=== PATIENT | male | born 2000 | race African-American/Black ===

== ENCOUNTER 2021-10-07 09:41 | Day surgery (SDC) | payer OTHER ==
[2021-10-06 12:58] VITALS: BMI 23.7
[2021-10-07] MEDS ORDERED: MIDAZOLAM HCL 2 MG/2 ML SINGLE DOSE VIAL ONE (11:21)
[2021-10-07] MEDS ORDERED: BUPIVACAINE LIPOSOME/PF (EXPAREL) 266 MG/20 ML VIAL ONE (11:21)
[2021-10-07] MEDS ORDERED: BUPIVACAINE HCL/PF 0.5% (5MG/ML) 10 ML VIAL ONE (11:21)
[2021-10-07] MEDS ORDERED: DEXAMETHASONE SOD PHOSPHATE 4 MG/1 ML VIAL ONE (12:32)
[2021-10-07] MEDS ORDERED: ONDANSETRON 4 MG/2 ML VIAL ONE ×2 (12:32→17:51)
[2021-10-07] MEDS ORDERED: PROPOFOL 20 ML ONE ×2 (12:33)
[2021-10-07] MEDS ORDERED: fentaNYL CITRATE 250 MCG/5 ML VIAL ONE (12:33)
[2021-10-07] MEDS ORDERED: ROCURONIUM BROMIDE 50 MG/5 ML SYRINGE ONE ×2 (12:33→13:31)
[2021-10-07] MEDS ORDERED: SUCCINYLCHOLINE CHLORIDE 200 MG/10 ML SYRINGE ONE (12:33)
[2021-10-07] MEDS ORDERED: ceFAZolin SODIUM 1 GM VIAL ONE (12:33)
[2021-10-07] MEDS ORDERED: TRANEXAMIC ACID 1000 MG/10 ML VIAL ONE (12:54)
[2021-10-07] MEDS ORDERED: HYDROmorphone HCL/PF 1 MG/ML VIAL ONE (13:38)
[2021-10-07] MEDS ORDERED: oxyCODONE HCL 5 MG TABLET PO PRN ×2 (16:08)
[2021-10-07] MEDS ORDERED: ONDANSETRON 4 MG/2 ML VIAL IVPUSH PRN (16:08)
[2021-10-07] MEDS ORDERED: LACTATED RINGERS SOLUTION 1,000 ML IV SCH (16:15)
[2021-10-07] MEDS ORDERED: NEOSTIGMINE METHYLSULFATE 0.5 MG/ML - 10 ML MDV ONE (16:19)
[2021-10-07] MEDS ORDERED: GLYCOPYRROLATE 0.2 MG/1 ML VIAL ONE (16:19)
[2021-10-07] MEDS ORDERED: ACETAMINOPHEN INJECTION 100 ML IVPB ONE (16:55)
[2021-10-07] MEDS ORDERED: ACETAMINOPHEN 1000 MG/100 ML VIAL IVPB ONE (17:04)
[2021-10-07] MEDS ORDERED: oxyCODONE HCL 5 MG TABLET ONE (17:46)
[2021-10-07] MEDS ORDERED: ONDANSETRON 4 MG/2 ML VIAL IVPUSH ONE (17:50)
[2021-10-07 18:27] VITALS: PULSE 78
[2021-10-07 19:23] VITALS: BP 132/59; TEMP 98.1
== END 2021-10-07 19:15 | disposition home or self-care (01) ==
LOC: FASU 09:41
PROVIDERS: ATTEND Orthopaedic Surgery Sports Medicine
PROC: 0QB54ZZ Excision of Left Acetabulum, Percutaneous Endoscopic Approach (ICD-10-PCS; 2021-10-07)
PROC: 0QB74ZZ Excision of Left Upper Femur, Percutaneous Endoscopic Approach (ICD-10-PCS; 2021-10-07)
PROC: 0SBB4ZZ Excision of Left Hip Joint, Percutaneous Endoscopic Approach (ICD-10-PCS; principal; 2021-10-07 13:33)
DX: M75.42 Impingement syndrome of left shoulder (principal); M25.752 Osteophyte, left hip
CPT/HCPCS: 94760; J0131